=== PATIENT | female | born 1985 | race Two or more races ===

== ENCOUNTER 2017-10-30 11:27 | Emergency (ER) | payer MEDICAID, OTHER ==
[2017-10-30 11:33] VITALS: BP 127/74
--- NOTE | 2017-10-30 12:10 | EDPHY ---
H & P Stated Complaint: hacking cough x 2 weeks Time Seen by Provider: 10/30/17 11:35 HPI/ROS: CHIEF COMPLAINT: Productive cough x2 weeks HISTORY OF PRESENT ILLNESS: 32-year-old female history of chronic Lyme disease , nonsmoker, complaining of 2 weeks of productive cough, able to sleep secondary to coughing. Symptoms also include rhinorrhea congestion. Denies: Dyspnea, chest pain, abdominal pain, nausea, vomiting, international travel, otalgia, fever, chills, malaise PRIMARY CARE PROVIDER: REVIEW OF SYSTEMS: A ten point review of systems was performed and is negative with the exception of the items mentioned in the HPI PAST MEDICAL & SURGICAL HISTORY: Chronic Lyme disease SOCIAL HISTORY: Nonsmoker PHYSICAL EXAM (Prior to examination, patient consented to physical exam, hands were washed and my usual and customary physical exam procedures followed) 1) GENERAL: Well-developed, well-nourished, alert and oriented. Appears nontoxic 2) HEAD: Normocephalic, atraumatic 3) HEENT: Pupils equal, round, reactive to light bilaterally. Sclera anicteric. Nasopharynx: Rhinorrhea, oropharynx, clear, no lesions. No tonsillar enlargement or exudate. Ears bilaterally with normal tympanic membranes. 4) NECK: Full range of motion, no meningeal signs. 5) LUNGS: Clear auscultation bilaterally, no wheezes, no rhonchi, no retractions. 6) HEART: Regular rate and rhythm, no murmur, no heave, no gallop. 7) ABDOMEN: No guarding, no rebound, no focal tenderness, negative McBurney's, negative Pyle's, negative Rovsing's, negative peritoneal sign, 8) MUSCULOSKELETAL: Moving all extremities, no focal areas of tenderness, no obvious trauma. No peripheral edema or discoloration. 9) BACK: No CVA tenderness, no midline vertebral tenderness, no fluctuance, no step-off, no obvious trauma, no visual or palpable abnormality. 10) SKIN: No rash, no petechiae. 11) Psychiatric: Patient is oriented X 3, there is no agitation. DIFFERENTIAL DIAGNOSIS: In no particular include but limited to pertussis, bronchitis, pneumonia - Personal History LMP (Females 10-55): Now - Medical/Surgical History Hx Asthma: Yes Hx Chronic Respiratory Disease: No Hx Diabetes: No Hx Cardiac Disease: No Hx Renal Disease: No Hx Cirrhosis: No Hx Alcoholism: No Hx HIV/AIDS: No Hx Splenectomy or Spleen Trauma: No Other PMH: asthma. endometriosis - Social History Smoking Status: Never smoked Constitutional: Initial Vital Signs Temperature (C) 37.0 C 10/30/17 11:31 Heart Rate 76 10/30/17 11:31 Respiratory Rate 18 10/30/17 11:31 Blood Pressure 127/74 H 10/30/17 11:31 O2 Sat (%) 97 10/30/17 11:31 O2 Delivery Mode Room Air Allergies/Adverse Reactions: Asparaginase - PEG, E. Coli Allergy (Verified 10/30/17 11:30) aspirin Allergy (Verified 10/30/17 11:30) latex Allergy (Verified 10/30/17 11:30) Penicillins Allergy (Verified 10/30/17 11:29) Home Medications: Medication Instructions Recorded Albuterol Sulfate 10/30/17 Albuterol [Proventil Inhaler HFA 1 - 2 puffs IH Q4PRN PRN #1 mdi 10/30/17 (*)] Azithromycin [Zithromax] 500 mg PO DAILY #1 tablet 10/30/17 Benzonatate [Tessalon Pearles (RX)] 200 mg PO TID PRN #15 cap 10/30/17 Zoloft 25mg (*) 10/30/17 Medical Decision Making ED Course/Re-evaluation: I do not identify indication for chest x-ray as the patient's lungs are clear bilaterally, has a normal pulse ox, speaking full sentences, no signs of respiratory distress. Given the longevity of her symptoms I think a trial of antibiotics is appropriate. I have also prescribed albuterol meter dose inhaler and antitussive. The patient understands that this diagnosis is provisional and can never be 100% accurate. Usual and customary warnings were given concerning the clinical impression and all the patient's questions were answered. The patient was instructed to return to the emergency department should her symptoms worsen or return, or develop any new symptoms, otherwise to followup as directed in discharge instructions. Care of patient under supervision of secondary supervising physician Dr Elian Tubbs . Departure - Departure Disposition: Home, Routine, Self-Care Clinical Impression: Upper respiratory infection Qualifiers: URI type: unspecified URI Qualified Code(s): J06.9 - Acute upper respiratory infection, unspecified Condition: Good Instructions: Upper Respiratory Infection (ED) Additional Instructions: Return to the emergency department immediately for change in breathing habits, change in voice, change in swallowing habits, change in mental status, or any other symptoms that concern you. Referrals: Follow-up, with your PCP in [place] in 3-5 days [Other] - As per Instructions Stand Alone Forms: Work Excuse Prescriptions: Albuterol [Proventil Inhaler HFA (*)] 1 - 2 puffs IH Q4PRN PRN #1 mdi PRN Reason: Cough, Moderate Azithromycin [Zithromax] 500 mg PO DAILY #1 tablet Benzonatate [Tessalon Pearles (RX)] 200 mg PO TID PRN #15 cap PRN Reason: Cough, Moderate
== END 2017-10-30 12:19 | disposition home or self-care (01) ==
DX: J06.9 Acute upper respiratory infection, unspecified (principal); J45.909 Unspecified asthma, uncomplicated; Z91.040 Latex allergy status

== ENCOUNTER 2017-12-12 04:12 | Emergency (ER) | payer MEDICAID ==
[2017-12-12 04:26] VITALS: BP 101/74
--- NOTE | 2017-12-12 04:54 | EDPHY ---
H & P Stated Complaint: SPIDER BITE R SHOULDER/NUMB R ARM, CHEST TIGHTNESS Time Seen by Provider: 12/12/17 04:41 HPI/ROS: HPI The patient presents after awaking from sleep, being bitten by a spider on her right posterior shoulder. She brings the spider in with her which appears to be a yellow sac spider. She says that she has pain in the region of the bite. She is also complaining of some tingling throughout her right shoulder and arm, however this does not involve her right fingers. She also felt somewhat short of breath with wheezing and cough after she awoke. She used her albuterol inhaler and now is feeling much better.. REVIEW OF SYSTEMS Constitutional: No fever, no chills. Eyes: No discharge. ENT: No sore throat. Cardiovascular: No chest pain, no palpitations. Respiratory: No cough, no shortness of breath. Gastrointestinal: No abdominal pain, no vomiting. Genitourinary: No hematuria. Musculoskeletal: No back pain. Skin: Spider bite Neurological: No headache. PMHx: Asthma Soc Hx: Housed, primary care is at [facility] PHYSICAL General Appearance: Alert, no distress Eyes: Pupils equal and round no pallor or injection ENT, Mouth: Mucous membranes moist, posterior pharynx is unremarkable Respiratory: There are no retractions, lungs are clear to auscultation, no wheezes are present Cardiovascular: Regular rate and rhythm Gastrointestinal: Abdomen is soft and non-tender, no masses, bowel sounds normal Neurological: A&O, slight diminished sensation to light touch in her arm and forearm on the right as compared to left, sensation is identical to light touch in her hands, she has 5/5 strength of her fingers, wrist flexion and extension, biceps and triceps strength Skin: Warm and dry, right posterior shoulder overlying the superior scapula there is a 1 cm area of erythema which is tender to palpation, there is no fluctuance Musculoskeletal: Neck is supple non tender Extremities: symmetrical, full range of motion Psychiatric: Patient is oriented X 3, there is no agitation Source: Patient Exam Limitations: No limitations - Personal History LMP (Females 10-55): 15-21 Days Ago Current Tetanus Diphtheria and Acellular Pertussis (TDAP): Yes - Medical/Surgical History Hx Asthma: Yes Hx Chronic Respiratory Disease: No Hx Diabetes: No Hx Cardiac Disease: No Hx Renal Disease: No Hx Cirrhosis: No Hx Alcoholism: Yes Hx HIV/AIDS: No Hx Splenectomy or Spleen Trauma: No Other PMH: asthma. endometriosis. LYME DISEASE - Social History Smoking Status: Never smoked Constitutional: Initial Vital Signs Temperature (C) 36.7 C 12/12/17 04:23 Heart Rate 70 12/12/17 04:23 Respiratory Rate 16 12/12/17 04:23 Blood Pressure 101/74 12/12/17 04:23 O2 Sat (%) 96 12/12/17 04:23 O2 Delivery Mode Room Air Allergies/Adverse Reactions: Asparaginase - PEG, E. Coli Allergy (Verified 10/30/17 11:30) aspirin Allergy (Verified 10/30/17 11:30) latex Allergy (Verified 10/30/17 11:30) Penicillins Allergy (Verified 10/30/17 11:29) Home Medications: Medication Instructions Recorded Albuterol Sulfate 10/30/17 Albuterol [Proventil Inhaler HFA 1 - 2 puffs IH Q4PRN PRN #1 mdi 10/30/17 (*)] Zoloft 25mg (*) 10/30/17 Medical Decision Making Differential Diagnosis: This is a 32-year-old female with history of asthma who presents from home after awakening from sleep being bitten by a spider. She has spider here with her which appears to be a yellow sac spider. This spiders bites or fairly benign. She does complain of some other symptoms of paresthesias of her right upper extremity. However, she has sensation in her hand, this would be unusual for any sort of central lesion which could represent a CVA. Her posterior pharynx is unremarkable, lungs are clear, thus I doubt true anaphylaxis. I suspect she is having a mild allergic reaction from this bug bite. I will give a dose of Benadryl here, I have encouraged ice packs for her bite, have instructed her to use albuterol as needed. She is happy with this plan. Departure - Departure Disposition: Home, Routine, Self-Care Clinical Impression: Spider bite, Paresthesia Condition: Good Instructions: Insect Bite or Sting (ED), General Allergic Reaction (ED) Additional Instructions: I recommend you use Benadryl 25 mg every 6 hr if you have any difficulty with breathing or coughing. Continue to use her albuterol inhaler. The numbness in your arm should improve over the next 24 hr. If it does not, I encouraged to follow up with your primary care doctor. Referrals: NONE *PRIMARY CARE P,. [Primary Care Provider] - As per Instructions
[2017-12-12] MEDS ORDERED: diphenhydrAMINE 25 MG CAP PO ONE ×2 (05:04→05:05)
== END 2017-12-12 05:15 | disposition home or self-care (01) ==
DX: S40.261A Insect bite (nonvenomous) of right shoulder, initial encounter (principal); W57.XXXA Bitten or stung by nonvenomous insect and other nonvenomous arthropods, initial encounter; Y99.8 Other external cause status; Y93.84 Activity, sleeping; J45.909 Unspecified asthma, uncomplicated; R20.2 Paresthesia of skin; Z91.040 Latex allergy status

== ENCOUNTER 2018-01-10 10:15 | Emergency (ER) | payer MEDICAID ==
[2018-01-10] MEDS ORDERED: NS 1,000 ML IV ONE (10:45)
--- NOTE | 2018-01-10 10:45 | EDPHY ---
General Time Seen by Provider: 01/10/18 10:37 Narrative: CHIEF COMPLAINT: Loss of consciousness, headache HISTORY OF PRESENT ILLNESS: Patient presents with complaints of headache and dizziness status post loss of consciousness. She states that she got up this morning around 7:00 a.m.. She was trying to walk to the restroom when she became lightheaded and passed out. She says she woke on her back, on a hardwood floor. She thinks it was very brief. She had a posterior headache and some neck pain. No change in her baseline paresthesia that she has. No chest pain. Baseline shortness of breath number asthma. She has some ongoing lightheaded and dizziness described as "wavy and occasional white spots."She has no difficulty ambulating. She has had no incontinence of bowel or bladder. No low back pain. No weakness of the arms or legs. No history of this. No other associated complaints or modifying factors. REVIEW OF SYSTEMS: Ten systems reviewed and are negative unless otherwise noted in the HPI PCP: Dr. Conklin SPECIALISTS: None PAST MEDICAL HISTORY: Depression, asthma, endometriosis, Lyme disease PAST SURGICAL HISTORY: No recent surgical history SOCIAL HISTORY: Nonsmoker. 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 FAMILY HISTORY: Noncontributory EXAMINATION General Appearance: Alert, no distress Head: normocephalic, atraumatic with exception of small occipital hematoma. No Medrano sign. No raccoon eyes. No depression or deformity. Eyes: EOM symmetric and painless. No dysconjugate gaze. No nystagmus. Pupils equal and round, no conjunctival pallor or injection ENT, Mouth: Mucous membranes moist Neck: Normal inspection, supple, non-tender Respiratory: Lungs are clear to auscultation Cardiovascular: Regular rate and rhythm. No murmur Gastrointestinal: Abdomen is soft and nontender Back: non-tender, no bony abnormalities Neurological: GCS 15. A&O, nonfocal, strength is symmetric in all 4 limbs. No pronator drift. Normal finger to nose. Light sensory is symmetric in the upper lower extremities. Strength is symmetric in the wrists, interossei, knees , ankles and great toes Skin: Warm and dry, no rash. No puncture laceration. Extremities: Nontender, no pedal edema Psychiatric: Mood and affect normal DIFFERENTIAL DIAGNOSES: Including but not limited to vasovagal syncope, cardiac conduction delay, malignant dysrhythmia, dehydration, orthostasis, ACS MDM: 10:45 a.m. Reported loss of consciousness after standing with some ongoing symptoms, closed head injury with headache and neck pain. She was placed in a C-collar prior to my examination. I have ordered laboratory studies, EKG, CT scans of the head cervical spine. She is awake alert no acute distress. Vital signs are within normal limits at this time. She is neuro intact distally. 11:30 a.m. Laboratory studies are within normal limits including negative troponin. Orthostatic vital signs are marginal. IV fluid resuscitation commenced previously. 12:15 p.m. Notified by radiologist Dr. Vizcaino. Negative CT scans of the head cervical spine. Patient re-evaluated and cervical collar cleared at this time. This collar was placed here not by EMS. 12:30 p.m. Patient has ambulated in the [place] without difficulty. She is mildly symptomatic with feeling much better. I discussed with Dr. Javier and he will evaluate the patient. 1:00 p.m. Patient has been evaluated by Dr. Javier and he agrees with disposition to home. He agrees with fluid resuscitation home, rest and antinausea medication as needed. The patient is comfortable this plan. We discussed ED precautions for return of syncope, headache, neck pain, nausea, numbness or tingling. She will follow up with primary care physician. Discharged home stable condition SUPERVISION: Patient was evaluated and examined in conjunction with my secondary supervising physician as documented. We have both examined the patient. - Diagnostics Imaging Results: Imaging Impressions Cervical Spine CT 01/10/18 10:46 Impression: 1. No acute fracture or soft tissue swelling. 2. If the patient has persistent pain or neurologic deficits, consider cervical spine MRI. Findings discussed with Emergency Department physician clerical administrative assistant, Petar Coffey on 01/10/2018, 12:16. Head CT 01/10/18 10:46 Impression: 1. Normal brain. No intracranial hemorrhage, mass, or features of ischemia. No explanation for syncope. 2. No acute fracture or brain contusion. Findings discussed with Emergency Department physician clerical administrative assistant, Petar Coffey on 01/10/2018, 12:16. - History Smoking Status: Never smoked - Objective Vital Signs: Initial Vital Signs Temperature (C) 98.1 F 01/10/18 10:18 Heart Rate 76 01/10/18 10:18 Respiratory Rate 17 01/10/18 10:18 Blood Pressure 136/95 H 01/10/18 10:18 O2 Sat (%) 96 01/10/18 10:18 O2 Delivery Mode Room Air Allergies/Adverse Reactions: Asparaginase - PEG, E. Coli Allergy (Verified 10/30/17 11:30) aspirin Allergy (Verified 10/30/17 11:30) latex Allergy (Verified 10/30/17 11:30) Penicillins Allergy (Verified 10/30/17 11:29) Home Medications: Medication Instructions Recorded Albuterol Sulfate 10/30/17 Albuterol [Proventil Inhaler HFA 1 - 2 puffs IH Q4PRN PRN #1 mdi 10/30/17 (*)] Zoloft 25mg (*) 10/30/17 Meclizine HCl [Meclizine HCl 25 mg 25 mg PO BID PRN #10 tab 01/10/18 (RX,OTC)] Ondansetron Odt [Zofran Odt 4 mg 4 mg PO Q6 PRN #12 tab 01/10/18 (*)] Laboratory Results: Laboratory Results 01/10/18 11:10 01/10/18 11:10 01/10/18 01/10/18 01/10/18 11:12 11:10 11:10 WBC RBC Hgb Hct MCV MCH MCHC RDW Plt Count MPV Neut % (Auto) Lymph % (Auto) [place] % (Auto) Eos % (Auto) Baso % (Auto) Nucleat RBC Rel Count Absolute Neuts (auto) Absolute Lymphs (auto) Absolute Monos (auto) Absolute Eos (auto) Absolute Basos (auto) Absolute Nucleated RBC Immature Gran % Immature Gran # Sodium 137 mEq/L mEq/L (135-145) Potassium 3.9 mEq/L mEq/L (3.3-5.0) Chloride 107 mEq/L mEq/L (97-110) Carbon Dioxide 25 mEq/l mEq/l (22-31) Anion Gap 5 mEq/L L mEq/L (8-16) BUN 8 mg/dL mg/dL (7-23) Creatinine 0.6 mg/dL mg/dL (0.6-1.0) Estimated GFR > 60 Glucose 103 mg/dL H mg/dL (70-100) Calcium 9.3 mg/dL mg/dL (8.5-10.4) POC Troponin I 0.00 ng/mL ng/mL (0.00-0.08) Beta HCG, Qual NEGATIVE 01/10/18 11:10 WBC 6.31 10^3/uL 10^3/uL (3.80-9.50) RBC 4.30 10^6/uL 10^6/uL (4.18-5.33) Hgb 11.5 g/dL L g/dL (12.6-16.3) Hct 35.9 % L % (38.0-47.0) MCV 83.5 fL fL (81.5-99.8) MCH 26.7 pg L pg (27.9-34.1) MCHC 32.0 g/dL L g/dL (32.4-36.7) RDW 14.4 % % (11.5-15.2) Plt Count 315 10^3/uL 10^3/uL (150-400) MPV 10.1 fL fL (8.7-11.7) Neut % (Auto) 69.7 % % (39.3-74.2) Lymph % (Auto) 21.1 % % (15.0-45.0) [place] % (Auto) 7.3 % % (4.5-13.0) Eos % (Auto) 1.1 % % (0.6-7.6) Baso % (Auto) 0.5 % % (0.3-1.7) Nucleat RBC Rel Count 0.0 % % (0.0-0.2) Absolute Neuts (auto) 4.40 10^3/uL 10^3/uL (1.70-6.50) Absolute Lymphs (auto) 1.33 10^3/uL 10^3/uL (1.00-3.00) Absolute Monos (auto) 0.46 10^3/uL 10^3/uL (0.30-0.80) Absolute Eos (auto) 0.07 10^3/uL 10^3/uL (0.03-0.40) Absolute Basos (auto) 0.03 10^3/uL 10^3/uL (0.02-0.10) Absolute Nucleated RBC 0.00 10^3/uL 10^3/uL (0-0.01) Immature Gran % 0.3 % % (0.0-1.1) Immature Gran # 0.02 10^3/uL 10^3/uL (0.00-0.10) Sodium Potassium Chloride Carbon Dioxide Anion Gap BUN Creatinine Estimated GFR Glucose Calcium POC Troponin I Beta HCG, Qual Medications Given: Discontinued Medications Sodium Chloride (Ns) 1,000 mls @ 0 mls/hr IV EDNOW ONE; Wide Open PRN Reason: Protocol Stop: 01/10/18 10:46 Last Admin: 01/10/18 11:05 Dose: 1,000 mls Point of Care Test Results: Chemistry 01/10/18 11:12 POC Troponin I 0.00 ng/mL ng/mL (0.00-0.08) Departure - Departure Disposition: Home, Routine, Self-Care Clinical Impression: Syncope and collapse Closed head injury Qualifiers: Encounter type: initial encounter Qualified Code(s): S09.90XA - Unspecified injury of head, initial encounter Condition: Good Instructions: Meclizine (By mouth), Ondansetron (By mouth), Dehydration (ED), Syncope (ED) Additional Instructions: 1. Increase fluid intake for the next 48 hr 2. Avoid alcohol for the next 48 hr 3. Medications as prescribed for dizziness and/or nausea 4. Follow up with primary care physician for re-evaluation 5. Return here for any further episodes of syncope, headache, Referrals: PEDRITO GUTIERREZ [Non Staff Provider (MD)] - As per Instructions Stand Alone Forms: Work Excuse Prescriptions: Meclizine HCl [Meclizine HCl 25 mg (RX,OTC)] 25 mg PO BID PRN #10 tab PRN Reason: Dizziness Ondansetron Odt [Zofran Odt 4 mg (*)] 4 mg PO Q6 PRN #12 tab PRN Reason: Nausea/Vomiting, Use 1st
--- NOTE | 2018-01-10 10:56 | CPEKG ---
Heart Rate: 69 RR Interval: 870 P-R Interval: 172 QRSD Interval: 78 QT Interval: 380 QTC Interval: 407 P [place]: 63 QRS [place]: 31 T Wave [place]: 14 EKG Severity - NORMAL ECG - EKG Impression: SINUS RHYTHM Electronically Signed By: Hali Javier 10-Jan-2018 15:11:29
[2018-01-10 11:20] LABS: PLATELET COUNT 315 10^3/uL (150-400)
[2018-01-10 13:16] VITALS: BP 116/85
== END 2018-01-10 13:35 | disposition home or self-care (01) ==
DX: R55 Syncope and collapse (principal); S09.90XA Unspecified injury of head, initial encounter; E86.9 Volume depletion, unspecified; Y92.008 Other place in unspecified non-institutional (private) residence as the place of occurrence of the external cause; Y93.01 Activity, walking, marching and hiking
CPT/HCPCS: 84484-PO